=== PATIENT | male | born 1990 | race Two or more races ===

== ENCOUNTER 2020-01-03 08:49 | Emergency (ER) | payer OTHER ==
[~2020-01-03] VITALS: Ht 182.9 cm; Wt 117.0 kg
[2020-01-03] MEDS ORDERED: ORPHENADRINE C100 MG PO (10:33)
[2020-01-03] MEDS ORDERED: NAPROXEN375 MG PO (10:33)
== END 2020-01-03 10:41 | disposition home or self-care (01) ==
LOC: ER 08:49
DX: S00.03XA Contusion of scalp, initial encounter (principal); S40.022A Contusion of left upper arm, initial encounter; S50.02XA Contusion of left elbow, initial encounter; M54.2 Cervicalgia; W07.XXXA Fall from chair, initial encounter; Y93.89 Activity, other specified; Y92.520 Airport as the place of occurrence of the external cause; Y99.8 Other external cause status